=== PATIENT | male | born 1965 | race Caucasian/White ===

== ENCOUNTER → 2018-11-27 | Outpatient (CLI) | payer OTHER, SELFPAY ==
--- NOTE | 2018-11-27 12:47 | STE_ITS ---
Reason For Study: PALPITATIONS Stress Results Protocol: Josemanuel Protocol Maximum Predicted HR: 168 bpm Target HR: 143 bpm % Maximum Predicted HR: 91 % DurationHeart Rate Stage (mm:ss) (bpm) BP BASELINE 93 142/102 STAGE 1 3:00 115 134/84 STAGE 2 3:00 125 170/90 STAGE 3 3:00 141 180/84 STAGE 4 0:30 153 / RECOVERY 121 132/92 Stress Duration: 9:30 mm:ss Maximum Stress HR: 153 bpm Baseline Echocardiogram Findings Stress Echo Wall motion Data Resting WM Intermediate WM Stress WM Resting Wall Motion Wall Motion Stress No regional wall motion No regional wall motion abnormalities noted. abnormalities noted. Ejection Fraction 55 %. Ejection Fraction 70 %. Interpretation Summary Exercise stress echo. 53-year-old man with a history of chest pain. Stress protocol. Resting EKG demonstrates normal sinus rhythm with a rate of 93 bpm normal intervals are noted resting blood pressure 142/102 mmHg. The patient exercised according to regular Josemanuel protocol for a total duration of 9 minutes and 30 seconds. The patient completed 30 seconds to stage IV the Josemanuel protocol. The maximum heart rate attained was 155 bpm which is 92% of maximum predicted heart rate. The maximum workload was 11.5 metabolic equivalents. Patient maintained sinus rhythm throughout the recording at rest there were no ST or T wave changes noted suggest ischemia peak exercise upsloping ST changes and were noted with no meet the criteria for ischemia. No clinical angina was noted the test was terminated due to leg fatigue. Stress echocardiogram. The resting echocardiogram demonstrated preserved ejection fraction of 55% with a peak ejection fraction at stress of over 65% with thickening of all mccoy and reduction in left ventricular cavity size. No new wall motion of normalities were noted to suggest ischemia. Conclusion: Normal exercise stress echo with no EKG criteria for ischemia at a high workload. Excellent functional aerobic capacity. No arrhythmias noted. Normal resting and stress echocardiographic images. Ordering Physician: Tavon^Anthony^^^ Referring Physician: Anthony Montes De Oca Performed By: Tania Bell, ROXANE, RVT
== END | disposition home or self-care (01) ==
PROVIDERS: Family Provider Family Medicine; PCP Family Medicine; Referring Provider Family Medicine; Visit Provider Family Medicine
DX: R55 Syncope and collapse (principal); R00.2 Palpitations
CPT/HCPCS: 93017; 93225; 93226; 93350

== ENCOUNTER 2020-07-08 10:24 | Emergency (ER) | payer BC, SELFPAY ==
[2020-07-08 10:26] VITALS: BP 145/96; PULSE 123; RESP 14; TEMP 35.7; O2SAT 96; BMI 25.6
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
--- NOTE | 2020-07-08 11:05 | CT_ITS ---
STUDY: CT ABDOMEN AND PELVIS WITH CONTRAST REASON FOR EXAM: Male, 54 years old. Abdominal Pain LLQ WITH HISTORY OF PRIOR DIVERTICULITIS RADIATION DOSAGE (If Supplied By Facility): CTDIvol = ( 15.92 ) mGy, DLP = ( 799.23 ) mGycm TECHNIQUE: Transaxial images were obtained from the dome of the diaphragm to the symphysis pubis without oral contrast. IV 100mL Isovue-370 was administered. Sagittal and coronal images were reconstructed. Individualized dose optimization techniques were used for this CT. COMPARISON: None. FINDINGS: The visualized lung bases are unremarkable. The visualized portions of the heart are within normal limits. There is decreased attenuation of the liver consistent with steatosis. Normal gallbladder and extrahepatic biliary system. Normal spleen. Normal pancreas. Normal bilateral adrenal glands. Normal right kidney. Normal left kidney. I suspect a fundus tail diverticulum of the stomach. Normal small intestine. There is diverticulosis, with thickening of the descending and sigmoid colon wall, and pericolonic inflammation changes consistent with acute diverticulitis. The colon lies within a large left-sided Spigalean hernia. The neck of the hernia measures 4.9 cm. The appendix is visualized and appears normal. There is scattered atherosclerotic calcification of the abdominal aorta, without a demonstrated aneurysm. Normal inferior vena cava. There is borderline retroperitoneal lymphadenopathy with enlarged nodes no greater than 10mm in the short axis diameter. Mild degree of diffuse bladder wall thickening. Normal abdominal wall. Normal osseous structures. CT/Abdomen/Pelvis W IV Cont ONLY IMPRESSION: Diverticulitis involving the descending colon as well as the sigmoid colon with inflammatory changes in the surrounding fat. 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 Fatty infiltration of the liver. Mild degree of diffuse bladder wall thickening. Electronically Signed: Manohar Govea MD at 11:59 EST , Service support ,
[2020-07-08] MEDS: Morphine 4 MG/ML Syringe IV (11:13)
[2020-07-08] MEDS: Ondansetron 4 MG/2 ML Vial IV (11:13)
[2020-07-08 11:19] LABS: White Blood Cells 0 SEEN /hpf (0-5)
[2020-07-08 11:21] LABS: Absolute Lymphocyte Count 1.49 X10^3/uL (0.83-4.51); Absolute Neutrophil Count 8.9 X10^3/uL (2.0-7.7); Basophil# 0.02 X10^3/uL; Basophil% 0.2 % (0-1); Eosinophil# 0.05 X10^3/uL; Eosinophils% 0.4 % (0-5); Hematocrit 44.1 % (40-54); Hemoglobin 14.7 g/dL (13.0-16.5); Lymphocyte # 1.49 X10^3/ul (4.0); Mean Corp Hgb Conc 33.3 g/dL (32-36); Mean Corpuscular Hgb 30.4 pg (27.0-32.0); Mean Corpuscular Volume 91.1 fL (80-94); Mean Platelet Vol. 9.5 fl (6.2-12.0); Monocyte# 0.97 X10^3/uL; Monocyte% 8.5 % (0-10); NRBC Flagged by Analyzer 0 % (0-5); Neutrophil % 77.6 % (47-70); Platelet Count 225 K/mm3 (150-450); RBC Distribution Width CV 11.7 % (11.6-14.6); RBC Distribution Width SD 39.6 fl (35.1-43.9); Red Blood Count 4.84 M/mm3 (4.6-6.2); White Blood Count 11.5 K/mm3 (4.4-11.0)
[2020-07-08 11:23] LABS: Color, Urine Yellow (Yellow); Glucose, Dipstick Normal (Normal); Ketone-Dipstick Negative (Negative); Leukocyte Esterase-Dipstick 25 /ul (Negative); Nitrite-Dipstick Negative (Negative); Occult Blood-Urine Negative /ul (Negative); Protein-Dipstick 15 mg/dl (Negative); Specific Gravity, Urine 1.015 (1.002-1.030); Urine Bilirubin Dipstick Negative (Negative); Urine Clarity Clear (Clear); Urine Urobilinogen Normal (Normal); Urine pH 6.5 (5.0 - 8.0)
[2020-07-08 11:27] LABS: ALB/GLOB Ratio 1.1 RATIO (0.9-2.4); AST(SGOT) 15 U/L (15-37); Alanine Aminotransfer ALT/SGPT 48 U/L (16-61); Albumin, Serum 3.5 g/dL (3.2-5.0); Alkaline Phosphatase 60 U/L (45-117); Anion Gap 5 (5-15); BUN 16 mg/dL (7-18); BUN/Creat Ratio 16.5 RATIO (10-20); Calcium,Total 8.9 mg/dL (8.5-10.1); Chloride 108 mmol/L (98-107); Creatinine, Serum 0.97 mg/dL (0.70-1.30); EST Glomerular Filtration Rate 86 mL/min (>60); Est Glom Filt Rate - Afr Amer 104 mL/min (>60); Estimated Creatinine Clearance 96.67 ml/min; Globulin 3.3 g/dL (2.2-4.2); Glucose 126 mg/dL (74-106); Potassium 3.5 mmol/L (3.5-5.1); Protein, Total 6.8 g/dL (6.4-8.2); Sodium Level 140 mmol/L (136-145)
[2020-07-08 11:35] LABS: Bacteria 1+ /hpf (None Seen); Mucous, Urine 1+ /hpf (<or=2+); Red Blood Cells-Urine 0-5 SEEN /hpf (0-5); Squamous Epithelial Cells - UA 0-5 SEEN /hpf (0-5)
[2020-07-08 13:20] VITALS: BP 109/74; PULSE 101; RESP 18; O2SAT 97
[2020-07-08] MEDS: Amox/Clavulanate 875 MG Tablet PO (13:21)
== END 2020-07-08 13:33 | disposition home or self-care (01) ==
PROVIDERS: Emergency Provider Student in an Organized Health Care Education/Training Program; PCP Family Medicine
DX: K46.9 Unspecified abdominal hernia without obstruction or gangrene (principal); K57.92 Diverticulitis of intestine, part unspecified, without perforation or abscess without bleeding; F17.200 Nicotine dependence, unspecified, uncomplicated
CPT/HCPCS: 74177; 80053; 81001; 85025; 96374; 96375; 99283; A4216; J2405

== ENCOUNTER 2020-08-21 19:03 | Emergency (ER) | payer BC, SELFPAY ==
[2020-08-21 19:04] VITALS: BP 133/85; PULSE 89; RESP 18; TEMP 36.6; O2SAT 97; BMI 26.4
--- NOTE | 2020-08-21 19:30 | RAD_ITS ---
INDICATION: Injury/Pain EXAMINATION/TECHNIQUE: X-RAY - LEFT XR Shoulder Min 2 Views COMPARISON: None. FINDINGS: No acute fracture or malalignment. Chronic fracture deformity of the clavicle. Normal internal and external rotation. No degenerative changes of the glenohumeral or acromioclavicular joint seen. The soft tissues are unremarkable. RAD/Shoulder min 2 Views IMPRESSION: No acute radiographic abnormalities. Electronically Signed: Stephane Tobar MD at 19:43 EDT Tel , Service support ,
[2020-08-21] MEDS: HYDROcodone Bitartrate/Apap 5/325 Tablet PO (19:36)
--- NOTE | 2020-08-21 20:11 | ED.DCSUM_ITS ---
- ER Visit Summary Date of Service: 08/21/20 Chief Complaint: Left shoulder pain History of Present Illness: The patient is a 55 M who presents with left shoulder pain that began today. Patient states he slipped and fell backwards. Patient states that he felt his shoulder dislocate when he landed. Patient states that when his helped him up he felt it reduce back into place. Patient describes the pain as dull. Patient states the pain is worse with any movement. Patient denies any paresthesias or weakness. Patient denies any loss of consciousness. Patient denies any other injuries. Physical Examination: Eitel signs are stable. Patient is afebrile. Patient is in no acute distress. Musculoskeletal exam reveals tenderness over the posterior aspect of the left shoulder. There is no bony crepitance or step-off and there is no deformity noted. Range of motion was limited in all motions of the left shoulder secondary to pain. Sensation was intact to light touch to the radial, median, ulnar, and axillary areas. Strength is 5/5 in the radial, median, and ulnar areas. Radial pulses are equal bilaterally. Test Results: X-rays of the left shoulder were obtained. There are 2 views. On my interpretation, there is no acute fracture or dislocation. There is no soft tissue swelling. Radiologist also interpreted the x-ray and agrees. Emergency Department Course and Treatment: Patient was given a dose of Ingalls here. Patient was given a sling and swath. Patient was instructed to follow-up with his primary care physician in 5 to 7 days. Patient was in a prescription for a short course of Ingalls. Patient was instructed to return if worse in any way. Patient understood and was agreeable with the plan. All questions were answered. Disposition: Discharge home Impression: 1. Left shoulder subluxation This note was generated with [employer] dictation software. It may contain incorrect words, spelling, and punctuation that were not noted in review of the chart prior to signing ED Disposition - Plan for ED Patient: Disposition: Home or Assisted Living Diagnosis: Shoulder subluxation, left Instructions: ED Shoulder Sprain, ED Sling and Swathe Prescriptions: Hydrocodone Bitart/Apap 5-325 [Ingalls 5MG-325MG] 1 tablet PO Q6H PRN PRN 3 Days #10 tab PRN Reason: Pain Transmission Status: Received by [id number] Referrals: Anthony Montes De Oca MD [Primary Care Provider] - 5-7 Days
[2020-08-21 20:45] VITALS: RESP 18
== END 2020-08-21 20:47 | disposition home or self-care (01) ==
PROVIDERS: Emergency Provider Emergency Medicine; PCP Family Medicine
DX: S43.002A Unspecified subluxation of left shoulder joint, initial encounter (principal); F17.200 Nicotine dependence, unspecified, uncomplicated; W01.0XXA Fall on same level from slipping, tripping and stumbling without subsequent striking against object, initial encounter
CPT/HCPCS: 73030; 99283

== ENCOUNTER 2020-12-12 15:06 | Emergency (ER) | payer BC, SELFPAY ==
[2020-12-12 15:07] VITALS: BP 116/85; PULSE 106; RESP 18; TEMP 37; O2SAT 96; BMI 27.1
--- NOTE | 2020-12-12 16:12 | EX.ED.UPPERE ---
HPI History of Present Illness Chief Complaint: Wound Informant: patient Occured/Mechanism Mechanism/Context: Yes puncture wound Comment: fishhook Onset/Context/Timing Onset: Today (JPTA) Context: Sudden Onset Timing: Continuous Quality of Pain: - (sore) Location: R ring finger Current Severity: Mild Maximum Severity: Moderate Worsened by: movement of FB Relieved by: remaining still Associated Symptoms Associated Symptoms: Negative for Parasthesia, Weakness and Loss of Funtion Narrative Narrative: Was fishing and accidentally got a fishhook stuck in his right ring finger Tetanus Immunization: <5 years [facility] Medical History (Updated 12/12/20 @ 17:[address] Luke Mart MD) Hypertension Home Medications hydrochlorothiazide 12.5 mg PO DAILY 07/08/20 [History Last Taken Unknown] losartan 100 mg PO DAILY 07/08/20 [History Last Taken Unknown] Allergy/AdvReac Type Severity Reaction Status Date / Time No Known Allergies Allergy Verified 12/12/20 15:08 Social History Smoking Status: Never smoker ROS ROS ED Constitutional Constitutional ED: Denies chills or fever(s) Musculoskeletal Musculoskeletal: Reports extremity pain; Denies neck pain Integumentary Reports wounds; Denies Abrasions or rash Neurologic Neurologic: Denies paresthesias or weakness EXAM Physical Exam Const Vital Signs: 12/12/20 15:07 Temperature 98.6 F Temperature Source Temporal Pulse Rate 106 H Respiratory Rate 18 Blood Pressure 116/85 H Blood Pressure Mean 95 Pulse Ox 96 Oxygen Delivery Method Room Air Positive well nourished and well developed General Appearance ED: well developed and NAD Neck full ROM and supple Back/Spine normal ROM and normal to inspection Extremity Extremity Narrative: 1 marques of a triple fishhook marques is embedded within the volar tip/pad of the right ring finger. No active bleeding, no nail involvement, no other injury. Full range motion except limited at the DIPJ due to pain. Neuro oriented x3, no focal motor deficits and no sensory deficits noted Sensorium / Orientation: alert Psych mental status grossly normal and thought process normal Skin no wounds Skin Narrative: Foreign body puncture with embedded foreign body in the right ring finger tip Rashes: no rashes MDM MDM MDM Narrative Medical decision making narrative: See the procedure note, your remove the foreign body without much difficulty. The marques was beneath the level of the skin but the entire foreign body was not deep. I do not think he will need oral antibiotics. It was cleansed thoroughly and dressed with bacitracin, he was advised to do the same at home, and watch for signs of infections and return if he has any. He is comfortable with that plan, his tetanus is already up-to-date. Procedures Other Procedures Procedure(s): Digital block --after isopropanol prep, lidocaine was injected subcutaneously in the dorsal aspect of the webspace between right fingers 4-5, and as I push the needle deeper aspirating, I obtained arterial blood. Did not inject here, probably remove the needle and applied pressure there was no significant bleeding, I discarded the lidocaine and obtained a new syringe full, and repeating the procedure had no blood, was able to obtain a good block with 60 cc total of 1% lidocaine plain. Foreign body removal --was able to back the single marques out of the fingertip without needing to cut the skin or trim the foreign body. No complications tolerated well without any pain. Cleansed and dressed with bacitracin. Discharge Plan Triage Chief Complaint: Wound ED Provider: Luke Mart Dx/Rx/DC Orders Clinical Impression: Foreign body of right ring finger Instructions: ED Foreign Body, Soft Tissue (Removed) Prescriptions: No Action hydrochlorothiazide 12.5 MG capsule 12.5 mg PO DAILY RF: 0 losartan 100 MG tablet 100 mg PO DAILY RF: 0 Primary Care Provider: Anthony Montes De Oca Referrals: Anthony Montes De Oca MD [Primary Care Provider] - As Needed (or ER if any issues) Disposition Disposition: Home, Self Care
[2020-12-12] MEDS: Lidocaine 1% (20 ml mdv) 20 ML Vial 10 ML INFILT (16:15)
[2020-12-12 17:09] VITALS: PULSE 71; RESP 16; O2SAT 97
--- NOTE | 2020-12-12 17:09 | ED.RN ---
THIS NURSE REVIEWED D/C INSTRUCTIONS WITH PT. PT VERBALIZED UNDERSTANDING OF INSTRUCTIONS. PT DENIES FURTHER NEEDS OR QUESTIONS AT THIS TIME. PT AMBULATES FROM ROOM ON OWN WITHOUT ASSISTANCE FROM STAFF
== END 2020-12-12 17:10 | disposition home or self-care (01) ==
PROVIDERS: Emergency Provider Emergency Medicine; PCP Family Medicine
DX: S60.454A Superficial foreign body of right ring finger, initial encounter (principal); X58.XXXA Exposure to other specified factors, initial encounter
CPT/HCPCS: 99282; A4216

== ENCOUNTER 2021-10-04 08:28 | Emergency (ER) | payer BC, SELFPAY ==
[2021-10-04 08:29] VITALS: BP 147/88; PULSE 95; RESP 17; TEMP 36.3; O2SAT 93; BMI 25.4
--- NOTE | 2021-10-04 11:59 | EDS_ITS ---
HPI History of Present Illness HPI Narrative: Patient presents with laceration to his right index finger that occurred today. Patient states he was washing dishes when a glass broke and cut his right index finger. Patient denies any paresthesias or weakness. Patient states his tetanus is up-to-date. Patient denies any foreign body sensation. Patient states bleeding stopped after several minutes of pressure. Patient denies any other injuries. Chief Complaint: Laceration Informant: patient Occured/Mechanism Comment: Cut on broken glass Onset/Context/Timing Onset: Today Context: Sudden Onset Timing: Continuous Quality of Pain: Aching Location: Right index finger Worsened by: Movement Relieved by: Nothing Associated Symptoms Associated Symptoms: Negative for Parasthesia, Weakness and Loss of Funtion Narrative Tetanus Immunization: <5 years [facility] Medical History (Updated 10/04/21 @ 12:[address] Ridge Alvarez DO) Hypertension Home Medications hydrochlorothiazide 12.5 mg PO DAILY 07/08/20 [History Last Taken Unknown] losartan 100 mg PO DAILY 07/08/20 [History Last Taken Unknown] Allergy/AdvReac Type Severity Reaction Status Date / Time No Known Allergies Allergy Verified 10/04/21 08:28 Surgical History (Updated 10/04/21 @ 12:[address] Ridge Alvarez DO) Hx of shoulder surgery Social History Smoking Status: Never smoker ROS ROS ED Constitutional Constitutional ED: Denies chills or fever(s) Eyes Eyes: Denies blurry vision or change in vision ENT ENT ED: Denies rhinorrhea or sore throat Cardiovascular Cardiovascular: Denies chest pain or palpitations Respiratory/Chest Respiratory/Chest: Denies cough or dyspnea Gastrointestinal Gastrointestinal: Denies nausea or vomiting Genitourinary Genitourinary ED: Denies dysuria or hematuria Musculoskeletal Musculoskeletal: Denies back pain or neck pain Integumentary Denies abscess or rash Neurologic Neurologic: Denies headache(s) or weakness Allergic/Immunologic Allergic/Immunologic ED: Denies mouth swelling or urticaria EXAM Physical Exam Const Vital Signs: 10/04/21 08:29 Temperature 97.4 F L Temperature Source Temporal Pulse Rate 95 Respiratory Rate 17 Blood Pressure 147/88 H Blood Pressure Mean 107 Pulse Ox 93 Oxygen Delivery Method Room Air Positive well nourished and well developed General Appearance ED: well developed and NAD HEENT Reports moist mucous membranes Extremity Extremity Narrative: There is a 5.5 cm V-shaped flap laceration of the dorsal aspect of the proximal phalanx of the right index finger. There is mild gapping of the wound margins. There are no foreign bodies visualized. There is no involvement of the extensor tendon. Strength is 5/5 in flexion extension of the MP, PIP, and DIP joints of the right index finger. Sensation was intact to light touch in all digits. Capillary refill was less than 2 seconds in all digits. Neuro oriented x3, CN's II-XII intact bilaterally, moves all extremities, no focal motor deficits and no sensory deficits noted Sensorium / Orientation: alert Psych mental status grossly normal MDM MDM MDM Narrative Medical decision making narrative: The wound was cleaned and irrigated with copious amounts of normal saline. The wound was anesthetized with 1% plain lidocaine via digital block. The wound was closed with 7 simple interrupted #4 -0 nylon sutures under sterile technique. Patient tolerated the procedure well. Bacitracin dressing was applied. AlumaFoam splint was applied to the right index finger. Bulky dressing was applied. Patient was instructed to keep the wound clean and dry. Patient was instructed to follow-up with his primary care physician in 5 to 7 days. Patient was instructed return if worse in any way. Patient understood and was agreeable with the plan. All questions were answered. Discharge Plan Triage Chief Complaint: Laceration ED Provider: Ridge Alvarez Dx/Rx/DC Orders Clinical Impression: Laceration of right index finger Instructions: ED Laceration, Hand: All Closures Prescriptions: No Action hydrochlorothiazide 12.5 MG capsule 12.5 mg PO DAILY RF: 0 losartan 100 MG tablet 100 mg PO DAILY RF: 0 Primary Care Provider: Anthony Montes De Oca Referrals: Anthony Montes De Oca MD [Primary Care Provider] - 7 Days for suture removal Disposition Disposition: Home, Self Care Discharge Date/Time: 10/04/21 10:59
--- NOTE | 2021-10-04 12:05 | ED.RN ---
SEE PT DOWNTIME NOTES
== END 2021-10-04 11:00 | disposition home or self-care (01) ==
PROVIDERS: Emergency Provider Emergency Medicine; PCP Family Medicine; Visit Provider Emergency Medicine
DX: S61.210A Laceration without foreign body of right index finger without damage to nail, initial encounter (principal); I10 Essential (primary) hypertension; W25.XXXA Contact with sharp glass, initial encounter
CPT/HCPCS: 12002; 99282; 99283

== ENCOUNTER 2023-03-08 10:22 | Day surgery (SDC) | payer OTHER, SELFPAY ==
[2023-03-08 10:41] VITALS: BP 147/93; PULSE 89; RESP 16; TEMP 36.6; O2SAT 99; BMI 25.0
[2023-03-08] MEDS: Lactated Ringers 1,000 ML 80 ML IV (10:45)
[2023-03-08] MEDS: Cefazolin 2 GM in 0.9% Normal Saline (100mL Bag) 100 ML IV (12:12)
[2023-03-08] MEDS: Bupivacaine 0.25% 30 ML Vial (12:36)
--- NOTE | 2023-03-08 12:40 | RAD_ITS ---
STUDY: X-RAY - LEFT ANKLE REASON FOR EXAM: Male, 57 years old. LEFT ANKLE TENDON REPAIR, DEBRIDEMENT TECHNIQUE: 5 intraoperative fluoroscopic view(s) of the ankle. COMPARISON: X-ray of the left foot dated May 26, 2015 FINDINGS: The images shows the left ankle obtained with fluoroscopic imaging. Surgical history mentation hardware overlies the lateral malleolus. Refer to the surgeon''s operative note for detailed description of the procedure and findings. RAD/Ankle 2 Views IMPRESSION: 1. Status post fluoroscopic guided left ankle surgical intervention Electronically Signed: Curtis Lane MD at 16:11 EDT ,
[2023-03-08 13:45] VITALS: BP 116/79; BP 147/93; PULSE 82; RESP 16; TEMP 36.4; O2SAT 95
--- NOTE | 2023-03-08 13:50 | RAD_ITS ---
STUDY: X-RAY - LEFT ANKLE REASON FOR EXAM: Male, 57 years old. Postoperative evaluation of fibular osteotomy peroneal/groove deepening. Follow-up. TECHNIQUE: 3 view(s) of the ankle. COMPARISON: X-rays of left foot dated May 26, 2015. FINDINGS: Osteopenia. Soft tissue swelling and soft tissue gas. Stable osteoma of the calcaneus. RAD/Ankle min 3 Views IMPRESSION: Postoperative findings. No complications. Electronically Signed: Tacho Hays MD at 14:25 EDT ,
--- NOTE | 2023-03-08 13:51 | DCINST_ITS ---
Discharge Instructions Diet Discharge Diet: No restrictions Activity Discharge Activity: May Not Drive, May Shower (Please utilize cast bag covering to keep dressings clean dry and intact to the left lower extremity while seated nonweightbearing on shower chair) and Use Crutches (May utilize crutches and knee scooter to remain nonweightbearing to the left lower extremity) Weight Bearing Status: No weight bearing (Please remain nonweightbearing to left lower extremity with assistance of crutches and a walker/scooter) Keep extremity elevated above heart level: Left Leg (Please elevate left lower extremity at all times and rest for postoperative edema control. May apply ice behind left knee for pain control) Dressing / Incision Call your doctor if you observe: Fever of 101 or Higher, Shortness of breath, Chest pain, Calf discomfort and Uncontrolled pain Change Dressing in: do not change dressing Remove Dressing in: leave in place till F/U (Physician will change dressing at first postoperative appointment) Cleanse incision/area with: Do not get Incision Wet and Keep Dressing Clean & Dry (Do not get dressing wet and keep dressings clean, dry, and intact to the left lower extremity) Follow Up Care Please Follow Up With: Michel Rasmussen DPM When: Patient has first postoperative appointment in office early next week Test Results: Test results from this visit will be discussed in further detail at your follow- up appointment, if applicable. Discharge Plan Admission Attending Provider: Michel Rasmussen Primary Care Provider: Anthony Montes De Oca Discharge Orders/Prescriptions Prescriptions: New oxycodone-acetaminophen 5-325 mg tablet 1 tab PO Q8H PRN (Reason: pain) 7 Days Qty: 28 0RF aspirin 325 mg tablet 325 mg PO DAILY Qty: 20 0RF doxycycline hyclate 100 mg capsule 100 mg PO DAILY Qty: 10 0RF No Action hydrochlorothiazide 12.5 MG capsule 12.5 mg PO DAILY losartan 100 MG tablet 100 mg PO DAILY Referrals / Follow Up: Anthony Montes De Oca MD [Primary Care Provider] - Disposition Disposition (needs filled in before D/C Order can be placed): Home, Self Care
--- NOTE | 2023-03-08 13:59 | PCM.OPRPT ---
Problems Associated Problem List Diagnoses (1) Other specified disorders of tendon, left ankle and foot: (2) Peroneal tendinitis of left lower extremity: (3) Pain in left lower leg: Report of Operation Date of Procedure: 03/08/23 Pre-Operative Diagnosis: 1. Peroneal Subluxation/Instability of Peroneal Tendons Left foot 2. Peroneal Tendonitis Left foot Post-Operative Diagnosis: 1. Peroneal Subluxation/Instability of Peroneal Tendons Left foot 2. Peroneal Tendonitis Left foot Surgery/Procedure Performed:: 1. Peroneal Groove Deepening with Relocation of Peroneal Tendons Left foot/Ankle. 2. Repair of peroneal retinaculum left foot Description of Surgical Findings:: See operative note for findings Surgeon: Michel Rasmussen supervisor [employer]: Ramon Almaraz DPM PGY-2 Type of Anesthesia: General and Local (20 cc 0.5% Marcaine plain) Specimen's removed: None Drains: None Estimated Blood Loss (mL): 0 mL Description of Procedure: HPI/indication: Patient is a 57-year-old male who presented to the office on 02/04/2023 with complaint of popping and dislocating ankle of the left foot. He states that he was transporting a 50 gallon drum when his foot was placed awkwardly with inversion of the ankle on October 13, 2022. He did recall audible pop to the ankle with immediate pain. He did report to [facility] for radiographs which were negative for fracture. He then followed up with orthopedics given a cam boot to immobilize the ankle however did not improve. He then underwent MRI on 11/05/2022 which demonstrated tenosynovitis of the peroneal longus and brevis tendons without obvious tearing. Axial images did demonstrate complete absence of the anterior talofibular ligament suggesting a nonacute high-grade tear/sprain. Posterior talofibular, intermalleolar, and tibiofibular ligaments were intact. Deltoid ligaments intact without tearing. On examination he did not demonstrate ankle instability with negative anterior drawer. Upon dorsiflexion eversion of the left foot the peroneal tendons were dislocatable sliding lateral and anterior to the fibula. He did have demonstrated difficulty with relocation and states I have to push the tendons back into place. I did discuss his case of subluxation/instability of the peroneal tendons with tear of the peroneal retinaculum of the left foot. He would like to have his peroneal tendons fixed to prevent chronic instability and further damage to the tendon. I discussed the surgical intervention in detail with the patient. Discussed the procedure is necessary to relocate the tendons, deep in the groove, and repair the ligament holding the tendons into position. He understands the necessity of the procedure and the risk of chronic fraying/rupture without surgical intervention. He wishes to proceed forward with intervention. I reviewed condition and all treatment options with patient. Patient continued to have chronic instability with limiting pain despite nonsurgical care. Discussed all possible benefits versus risks and potential complications in detail. Advised the patient the risks include but are not limited to the following: Pain, continued pain, complex regional pain syndrome, deformity, continue deformity, recurrence, overcorrection, under correction, numbness/neuritis, swelling, scarring, poor cosmetic result, bleeding, need for further surgery/procedures, fracture, nonunion, delayed union, nonhealing/delayed healing, dehiscence, infection, blood clots, allergic reaction, transfer lesions, postoperative arthritis, weakness, shoe gear problems, inability to walk, inability to wear shoes, stroke, heart attack, addiction to pain medication, loss of function, loss of limb, loss of life. Patient expressed understanding and agreement of these. Patient was able to repeat these back. Alternative options were discussed and reviewed with patient in detail with risks versus possible benefits of all options discussed. Typical postoperative course was reviewed. Patient expressed understanding and agreement. No guarantees were made. No promises were given. Patient signed consent forms freely. He did undergo medical clearance by PCP. All diagnostic data was reviewed prior to surgery. He did utilize speed lace ankle brace to prevent chronic subluxation until surgical intervention. Operative limb was signed prior to entering the OR. He was scheduled to undergo peroneal groove deepening with relocation of the peroneal tendons of the left foot with repair of the peroneal retinaculum at [facility] on 03/08/2023. Procedure: Under mild sedation patient was brought into the operating room and general esthesia was administered, and the patient was placed on the operating table in the prone position. Next, a pneumatic thigh tourniquet was placed about the patient's left thigh. He underwent proximal local anesthetic block of 20 cc 0.5% Marcaine plain about the lower extremity. The foot and leg were then scrubbed, prepped, and draped in the usual aseptic manner. An Esmarch bandage was utilized to exsanguinate the left lower extremity and the pneumatic thigh tourniquet was inflated to 300 mmHg. Next, attention was directed to the lateral ankle where landmarks were marked out and a linear incision was made overlying the distal fibula utilizing a #15 blade. Incision was deepened through sharp and blunt dissection. Care was taken to identify and retract all vital neurovascular structures and protected throughout the duration of this case. A small lateral collateral circulating vein of the small saphenous vein was encountered tied off, section, and cauterized. Incision was deepened to the level of the peroneal tendons and the tendons which were identified and the ankle was ranged with noted subluxation of the peroneal longus and brevis tendons. The tendons were retracted medially to access the posterior fibula. Next, utilizing fluoroscopy assistance an osteotome and mallet were utilized to score the posterior distal fibula creating a trapdoor osteotomy of the outer cortex. Next, the door was opened with a hinge directed medially and a portion of the underlying cortical bone was debrided with a curette to allow for deepening of the peroneal groove without disruption of the cartilage of the posterior distal fibula at the peroneal groove. The trapdoor was closed and the groove was noted to be deeper. The tendons were placed back into the groove and the ankle underwent range of motion in dorsiflexion, plantarflexion, eversion, and inversion, and a combination of these motions. The peroneal tendons were noted to remain within the peroneal groove without subluxation/dislocation. The site was then flushed with copious amounts of normal sterile saline. At this time final fluoroscopic images were utilized to confirm peroneal groove deepening with osteotomy of the distal fibula with no fracture of the distal fibula noted. Next, the peroneal tendons were inspected for tearing. No tendon tears were identified. The peroneal retinaculum was reconstructed utilizing 4-0 Vicryl. The deep tissues were then closed utilizing 0 Vicryl. The subcutaneous tissues were closed utilizing 4-0 Monocryl. At this time the pneumatic thigh tourniquet was deflated and a prompt hyperemic response was noted to the digits of the left foot. The skin was reapproximated utilizing 3-0 Prolene in simple interrupted fashion. Incision site was dressed with Betadine soaked Adaptic, 4 x 4 gauze, Kerlix, ABD, Webril cast padding, 4 inch Benedicto wrap and 6 inch Benedicto wrap. Patient was placed into a well molded posterior splint which was anchored with a 4 inch and 6 inch Benedicto wrap and modified Acevedo compression fashion. Patient tolerated the procedure and anesthesia well and was transported to PACU with vital signs stable and vascular status intact to the left foot. He received his discharge instructions outlining postoperative care, including strict nonweightbearing status to the left lower extremity with assistance of crutches/knee scooter. He will keep dressings clean, dry, and intact to the left foot. He is to continue to elevate left lower extremity at all times of rest for postoperative edema control. He will follow-up in office for continued postoperative care early next week. Grafts/Implants Used: None Complications None Admit VTE Documentation VTE Present on Admission: No VTE Mechan Device Prophylaxis: SCD's VTE Pharm Prophylaxis ordered?: Yes
[2023-03-08 14:00] VITALS: BP 111/82; BP 147/93; PULSE 94; RESP 16; O2SAT 95
[2023-03-08 14:15] VITALS: BP 130/94; BP 147/93; PULSE 94; RESP 16; O2SAT 94
[2023-03-08 14:26] VITALS: BP 130/81; BP 147/93; PULSE 85; RESP 16; TEMP 36.3; O2SAT 96
[2023-03-08 14:59] VITALS: BP 147/93
== END 2023-03-08 15:08 | disposition home or self-care (01) ==
LOC: SDC 10:23 → AC 10:24
PROVIDERS: PCP Family Medicine; Referring Provider Student in an Organized Health Care Education/Training Program; Visit Provider Student in an Organized Health Care Education/Training Program
PROC: (CPT 27676; principal; 2023-03-08 11:45)
DX: M76.72 Peroneal tendinitis, left leg (principal); M25.375 Other instability, left foot; F17.210 Nicotine dependence, cigarettes, uncomplicated; I10 Essential (primary) hypertension; L24.9 Irritant contact dermatitis, unspecified cause; Z79.899 Other long term (current) drug therapy
CPT/HCPCS: 27676; 27659; 01484; 73600; 73610; 76000; J7120; J2405

== ENCOUNTER 2023-03-22 05:13 | Emergency (ER) | payer OTHER, SELFPAY ==
[2023-03-22 05:14] VITALS: BP 141/91; PULSE 104; RESP 16; TEMP 36.2; O2SAT 97; BMI 25.1
--- NOTE | 2023-03-22 05:30 | VDLE_ITS ---
Reason For Study: pain Procedure LEFT This is a venous duplex using B-mode, color GSV is normal. flow and spectral Doppler. CFV is compressible, spontaneous, phasic, Exam performed portable in ED. competent, and demonstrates normal The exam was abbreviated due to the COVID 19 augmentation. protocol. FV is compressible, spontaneous, phasic, The exam was diagnostic. competent and demonstrates normal A preliminary report was called and/or faxed augmentation. to Dr. Ryan. POP V is compressible, spontaneous, phasic, competent and demonstrates normal augmentation. T/P Trunk is compressible. PTV is compressible. Acute deep vein thrombosis is noted in the Per V. It is dilated and NONCOMPRESSIBLE. Acute deep vein thrombosis is noted in the Gastrocnemius V. It is dilated and NONCOMPRESSIBLE. Acute deep vein thrombosis is noted in the Soleus V. It is dilated and NONCOMPRESSIBLE. VL/Venous Duplex US, Unilateral Interpretation Summary Acute deep venous thrombosis left peroneal, gastrocnemius, and soleus veins. Patent and compressible left great saphenous vein Ordering Physician: Parveen Mitchell Performed By: Miguel A Alves RVT
--- NOTE | 2023-03-22 05:30 | EDS_ITS ---
HPI <Dr. Parveen Mitchell DO - Last Filed: 03/23/23 03:25> History of Present Illness Chief Complaint: Lower Extremity Injury Informant: patient and spouse/S.O. Narrative Narrative: 2 weeks postop peroneal tendon repair from injury at work. He is followed by Dr. Rasmussen. Nonweightbearing to left lower extremity. Calf pain started 4 days ago. No chest pains or shortness of breath. Follow-up with his doctor yesterday, outpatient ultrasound was ordered, however order was placed to late and was unable to get it performed. He was directed to go to emergency department however it was too busy therefore they left. The return at this time for evaluation. Prior similar symptoms: No PFSH <Dr. Parveen Mitchell DO - Last Filed: 03/23/23 03:25> PFSH Medical History Alcohol use Easy bruising History of diverticulitis History of echocardiogram History of Holter monitoring History of stress test Hypertension Leg cramps Loose, teeth Smoker Wears glasses Home Medications losartan 100 mg tablet 100 mg PO DAILY 07/08/20 [History Last Taken 03/08/23] apixaban 5 mg tablet (Eliquis) 5 mg PO BID #74 tabs 03/22/23 [Rx Last Taken Unknown] Allergy/AdvReac Type Severity Reaction Status Date / Time No Known Allergies Allergy Verified 03/08/23 10:41 Surgical History (Updated 03/22/23 @ 05:[address] Parveen Mitchell DO) History of repair of laceration (~2015) Hx of shoulder surgery Social History Smoking Status: Current every day smoker tobacco type: cigarettes ROS <Dr. Parveen Mitchell DO - Last Filed: 03/23/23 03:25> ROS ED Constitutional Constitutional ED: Denies chills, fever(s) or sweats Eyes Eyes: Denies change in vision ENT ENT ED: Denies dysphagia or sore throat Cardiovascular Cardiovascular: Denies chest pain, leg edema, palpitations or racing heartbeat Respiratory/Chest Respiratory/Chest: Denies cough, dyspnea or dyspnea on exertion Gastrointestinal Gastrointestinal: Denies abdominal pain, diarrhea, nausea or vomiting Genitourinary Genitourinary ED: Denies dysuria, hematuria or urinary frequency Musculoskeletal Musculoskeletal: Reports extremity pain; Denies back pain or neck pain Integumentary Denies rash or wounds Neurologic Neurologic: Denies headache(s), paresthesias or weakness EXAM <Dr. Parveen Mitchell, DO - Last Filed: 03/23/23 03:25> Physical Exam Const Vital Signs: 03/22/23 05:14 Temperature 97.2 F L Temperature Source Temporal Pulse Rate 104 H Respiratory Rate 16 Blood Pressure 141/91 H Blood Pressure Mean 107 Pulse Ox 97 Oxygen Delivery Method Room Air Positive well nourished and well developed General Appearance ED: well developed and NAD HEENT Reports moist mucous membranes normocephalic and atraumatic Eyes PERRL, EOMs intact bilaterally and conjunctivae normal General Eye ED: Yes normal appearance of both eyes Neck no lymphadenopathy and supple General: Negative for tenderness Chest Wall Chest: Negative for tenderness Resp normal respiratory effort and normal air movement Effort and Inspection: symmetric chest movement; Negative for respiratory distress Cardio regular rate, regular rhythm and no murmurs Peripheral Pulses: pulses 2+ throughout GI normal to inspection, nondistended, normoactive bowel sounds and non-tender Palpation: Negative for guarding or rebound tenderness present Back/Spine no CVA tenderness and no thoracic nor lumbar tenderness Extremity Extremity Narrative: Lower extremity: Dressing taken down, tender to palpation. No medial thigh tenderness. Pulses intact distally with cap refill less than 3 seconds. General Extremety ED: Negative for edema or tenderness General Extremity: Negative for edema Neuro oriented x3 and no sensory deficits noted Sensorium / Orientation: awake and alert Skin no rashes or lesions noted and no wounds <Dr. Tod Ryan, DO - Last Filed: 03/22/23 08:31> Physical Exam Const Vital Signs: 03/22/23 05:14 Temperature 97.2 F L Temperature Source Temporal Pulse Rate 104 H Respiratory Rate 16 Blood Pressure 141/91 H Blood Pressure Mean 107 Pulse Ox 97 Oxygen Delivery Method Room Air MDM <Dr. Parveen Mitchell, DO - Last Filed: 03/23/23 03:25> MDM MDM Narrative Medical decision making narrative: Interventions / MDM: Differential diagnosis: DVT, calf strain Diagnosis considered but do not suspect: N/A My EKG interpretation: N/A Imaging independently reviewed and interpreted by myself: Left lower extremity ultrasound: Pending External documents reviewed: N/A Test considered but not ordered:N/A ED course: Patient presenting DVT concerns he is status post surgery. Pulses intact distally. Patient understands time of the night with no ultrasound available however they will be here early this morning. He has no PE symptoms. Will order ultrasound to be performed on arrival. Re-evaluation: stable Disposition discussed with patient/family/significant other: Patient and significant other Case discussed with consulting clinician: N/A This note was generated with [employer] software. It may contain incorrect words, spelling, and punctuation that were not noted in checking the note before signing. Radiography Diagnostic Testing: Clinical Impression(s) from Imaging Studies Venous Doppler Study 03/22/23 05:30 Interpretation Summary Acute deep venous thrombosis left peroneal, gastrocnemius, and soleus veins. Patent and compressible left great saphenous vein Ordering Physician: Parveen Mitchell Performed By: Miguel A Alves RVT <Dr. Tod Ryan, DO - Last Filed: 03/22/23 08:31> MDM MDM Narrative Medical decision making narrative: Interventions / MDM: Differential diagnosis: DVT, calf strain Diagnosis considered but do not suspect: N/A My EKG interpretation: N/A Imaging independently reviewed and interpreted by myself: Left lower extremity ultrasound: Pending External documents reviewed: N/A Test considered but not ordered:N/A ED course: Patient presenting DVT concerns he is status post surgery. Pulses intact distally. Patient understands time of the night with no ultrasound available however they will be here early this morning. He has no PE symptoms. Will order ultrasound to be performed on arrival. Re-evaluation: stable Disposition discussed with patient/family/significant other: Patient and significant other Case discussed with consulting clinician: N/A This note was generated with [employer] software. It may contain incorrect words, spelling, and punctuation that were not noted in checking the note before signing. Patient care turned over to me awaiting ultrasound of left lower extremity. Patient was positive for DVT to the gastroc, soleus, and peroneal veins. Will discuss case with patient's surgeon of record. We will start patient on Eliquis. Patient denies any blood in his stool or black tarry stool. He has never had an intracranial hemorrhage. No bleeding concerns. Patient denies any chest pain or shortness of breath. Radiography Diagnostic Testing: Clinical Impression(s) from Imaging Studies Venous Doppler Study 03/22/23 05:30 Interpretation Summary Acute deep venous thrombosis left peroneal, gastrocnemius, and soleus veins. Patent and compressible left great saphenous vein Ordering Physician: Parveen Mitchell Performed By: Miguel A Alves RVT Discharge Plan Triage Chief Complaint: Lower Extremity Injury ED Provider: Parveen Mitchell Dx/Rx/DC Orders Clinical Impression: Pain of left calf, Post-operative state, DVT (deep venous thrombosis) Instructions: ED Deep Vein Thrombosis (DVT) Prescriptions: New Eliquis 5 mg tablet 5 mg PO BID Qty: 74 0RF Rx Instructions: 10 mg twice a day for the first week. Then 5 mg twice a day. No Action losartan 100 MG tablet 100 mg PO DAILY Primary Care Provider: Anthony Montes De Oca Referrals: Anthony Montes De Oca MD [Primary Care Provider] - 5-7 Days Disposition Disposition: Home, Self Care Discharge Date/Time: 03/22/23 08:55
[2023-03-22] MEDS: APIXABAN 5 MG TABLET 10 MG PO (08:42)
== END 2023-03-22 08:55 | disposition home or self-care (01) ==
PROVIDERS: Emergency Provider Emergency Medicine; PCP Family Medicine; Visit Provider Emergency Medicine
DX: M79.662 Pain in left lower leg (principal); I82.452 Acute embolism and thrombosis of left peroneal vein; F17.210 Nicotine dependence, cigarettes, uncomplicated; I10 Essential (primary) hypertension; Z79.899 Other long term (current) drug therapy
CPT/HCPCS: 93971; 99282